=== PATIENT | male | born 1960 ===

== ENCOUNTER 2017-04-09 07:19 | Inpatient (IN) | payer OTHER ==
[2017-04-09 07:25] VITALS: BMI 28.3
--- NOTE | 2017-04-09 08:23 | C.PDOC ---
History Of Present Illness 57 y/o M c PMHx HTN, HLD, DM, arthritis p/w R gluteal swelling and pain x 1 week. Patient has had multiple boils on the buttocks that typically resolve with Augmentin and spontaneous drainage. Patient was started on Augmentin, but this particular induration has not improved so patient came to ED. Patient reports pain is worse than typical and area of induration is much larger than usual. Had fever for first 3 days, now gone. Denies vomiting, abdominal pain, dyspnea. Time Seen by Provider: 04/09/17 07:43 Chief Complaint (Nursing): Abnormal Skin Integrity Past Medical History Vital Signs: Last Vital Signs Temp 98 F 04/09/17 11:05 Pulse 58 L 04/09/17 11:05 Resp 16 04/09/17 11:05 BP 125/79 04/09/17 11:05 Pulse Ox 98 04/09/17 11:05 - Medical History PMH: Arthritis, HTN, Hypercholesterolemia Family History: States: No Known Family Hx - Social History Hx Alcohol Use: No Hx Substance Use: No - Immunization History Hx Tetanus Toxoid Vaccination: No Hx Influenza Vaccination: No Hx Pneumococcal Vaccination: No Review Of Systems Except As Marked, All Systems Reviewed And Found Negative. Constitutional: Negative for: Fever Respiratory: Negative for: Shortness of Breath Physical Exam - Physical Exam Additional Physical Exam Comments: Constitutional: No acute distress. Head: Normocephalic. Eyes: PERRL. ENT: Moist mucous membranes. Neck: Supple. Cardiovascular: Regular rate. Radial pulse 2+ bilaterally. Chest: No tenderness. Respiratory: Clear to auscultation bilaterally. GI: Soft. Nontender. Nondistended. Back: No CVA tenderness. Musculoskeletal: No tenderness or swelling of extremities. Skin: No rash. Right buttock with induration and tenderness. No superficially palpable fluctuant area, no obvious erythema. Neurologic: Alert, no focal deficit. ED Course And Treatment - Laboratory Results Result Diagrams: 04/09/17 08:45 04/09/17 08:45 O2 Sat by Pulse Oximetry: 97 (RA) Pulse Ox Interpretation: Normal Medical Decision Making Medical Decision Making: Will send for CT to evaluate for deep abscess vs cellulitis. Failed outpatient therapy, will start on IV antibiotics. FINDINGS: LOWER THORAX: U mild passive type atelectasis both posterior lung bases. No effusion or basilar pneumothorax. Heart size is within range of normal. No significant pericardial effusion. There is a small to medium size hiatal hernia with wall thickening of the distal esophagus that may in part be due to protrusion of gastric mucosa however esophagitis or other intrinsic/ invasive wall lesion (such as esophageal carcinoma) must be excluded. Followup upper endoscopy recommended if clinically indicated. LIVER: The liver exhibits normal size measuring approximately 13.1 cm in CC dimension. Mild fatty hepatic infiltration. No obvious hepatic collection or calcification identified. Portal and splenic are opacified. GALLBLADDER AND BILE DUCTS: The gallbladder is incompletely distended which may account for prominent gallbladder wall. No intraluminal gallbladder calculi or pericholecystic fluid collections. PANCREAS: There appears to be atrophic changes of the pancreatic tail region. Bulky appearance of the pancreatic head however no obvious discrete pancreatic masses are identified. SPLEEN: Spleen exhibits normal size and attenuation pattern without mass collection or calcification. ADRENALS: No adrenal lesions. KIDNEYS AND URETERS: Kidneys demonstrate relatively symmetric nephrograms. No evidence of nephrolithiasis or hydronephrosis. BLADDER: Urinary bladder is incompletely distended which in part accounts for thick- walled appearance. Muscular hypertrophy may contribute. Possibility of intrinsic/invasive wall lesion not excluded. Clinical correlation recommended. REPRODUCTIVE: Prostate gland is mildly enlarged measuring 5.5 cm in transverse dimension. Seminal vesicles appear grossly unremarkable. APPENDIX: .Normal-appearing appendix best seen on axial series 3 image number [id number]. No periappendiceal inflammatory changes. BOWEL: Evaluation of the bowel is limited due to by lack of oral contrast material. Stomach is incompletely distended which in part accounts for thick-walled appearance. . Possibility of a gastritis or other intrinsic/invasive wall lesion not excluded. Visualized loops of small bowel exhibit normal contour and caliber. No evidence of acute mechanical small bowel obstruction. Stool and air seen throughout the large bowel. There are few scattered colonic diverticula however no radiographic evidence of acute diverticulitis. PERITONEUM: Unremarkable. No fluid collection. No free air. LYMPH NODES: Unremarkable. No enlarged lymph nodes. VASCULATURE: Unremarkable. No aortic aneurysm. BONES: Mild multilevel degenerative spondylosis of the lower thoracic and lumbar spine. No acute compression fractures no retropulsed fragments. There appears to be a mild levoscoliosis centered in the lower lumbar region. Sclerotic foci seen scattered throughout the pelvis an right femoral neck probably represent small bone islands or osteomas. OTHER FINDINGS: There is at nonspecific vague infiltration changes seen in the right parasagittal buttock somewhat discrete curvilinear area of soft tissue density adjacent to the right posterolateral border of the anal verge region that measures approximately 2.17 x 1.2 cm. This could represent a inflammatory process and possible small phlegmon - possibly early abscess. In addition, there is some increased attenuation along the medial aspect of the right gluteus musculature as well compared to the left side which is fatty infiltrated. This too may represent a inflammatory - myositis process. In addition, there are mild infiltration changes within the subcutaneous fat of the right buttock as well. Clinical correlation recommended IMPRESSION: There is a small localized soft tissue density located in the right parasagittal posterior perianal region which may represent a small phlegmon and or early abscess. . There is also increased attenuation of the medial aspect of the gluteus musculature that may represent an inflammatory process/myositis as well. Additionally, mild infiltration changes in the subcutaneous fat right buttock compared the left. Clinical correlation recommended. Small hiatal hernia with wall thickening of distal esophagus likely in part due protrusion of gastric mucosa however esophagitis or other intrinsic/invasive wall lesion not excluded. The urinary bladder is also thickened in part due to incomplete distention and probable muscular hypertrophy though again cystitis or other intrinsic wall lesion not excluded. Enlarged prostate gland. Slightly atrophic appearing pancreatic distal body and tail with bulky appearance of the pancreatic head with no discrete pancreatic mass seen. Mild fatty hepatic infiltration. See above discussion for additional details and findings. These findings discussed with the Dr. Armando ramos at approximately 11:25 p.m. with written down and read back verification. Started on Vancomycin. Accepted to Dr. Ethan Johnson's service, informed of other CT findings requiring follow up. Disposition Discussed With : Garcia Johnson Doctor Will See Patient In The: Hospital - Disposition Disposition: HOSPITALIZED Disposition Time: 11:40 Condition: FAIR Forms: [facility] (Nauruan) - Clinical Impression Clinical Impression: Cellulitis, Failure of outpatient treatment - Scribe Statement The provider has reviewed the documentation as recorded by the Martaibolman Poole All medical record entries made by the Scribe were at my direction and personally dictated by me. I have reviewed the chart and agree that the record accurately reflects my personal performance of the history, physical exam, medical decision making, and the department course for this patient. I have also personally directed, reviewed, and agree with the discharge instructions and disposition.
[2017-04-09 08:55] LABS: BASO # 0.1 K/uL (0.0-0.2); EOS # 0.5 K/uL (0.0-0.7); EOS % 4.1 % (0.0-4.0); HEMATOCRIT 35.2 % (35.0-51.0); LYMPH # 2.6 K/uL (1.0-4.3); LYMPH % 22.1 % (20.0-40.0); MEAN CELL VOLUME 88.5 fL (80.0-94.0); MEAN CORPUSCULAR HEMOGLOBIN 30.7 pg (27.0-31.0); MEAN CORPUSCULAR HGB CONC 34.7 g/dL (33.0-37.0); MEAN PLATELET VOLUME 8.4 fL (7.2-11.7); MONO # 0.9 K/uL (0.0-0.8); MONO % 7.8 % (0.0-10.0); RED CELL DISTRIBUTION WIDTH 12.6 % (11.5-14.5); WHITE BLOOD COUNT 11.7 K/uL (4.8-10.8)
[2017-04-09 09:03] LABS: INR 1.1
[2017-04-09 09:14] LABS: ALB/GLOB RATIO 0.9 (1.0-2.1); ALKALINE PHOSPHATASE 73 U/L (38-126); ALT/SGPT 34 U/L (21-72); AST/SGOT 35 U/L (17-59); BILIRUBIN,TOTAL 0.5 mg/dL (0.2-1.3); BLOOD UREA NITROGEN 13 mg/dL (9-20); CALCIUM 9.2 mg/dl (8.6-10.4); CARBON DIOXIDE 31 mmol/L (22-30); CHLORIDE 97 mmol/L (98-107); GFR AFRICAN-AMERICAN > 60; GLUCOSE,RANDOM 155 mg/dL (75-110); POTASSIUM 4.2 mmol/L (3.6-5.2); SODIUM 134 mmol/L (132-148); TOTAL PROTEIN 7.9 g/dL (6.3-8.3)
[2017-04-09] MEDS ORDERED: Iodixanol 320 MG/ML 100 ML BOTTLE IV ONE (10:11)
--- NOTE | 2017-04-09 11:31 | CT ---
PROCEDURE: CT scan of the abdomen and pelvis dated 04/09/2017. HISTORY: Right-sided gluteal induration, assess cellulitis/abscess COMPARISON: None. TECHNIQUE: Contiguous helical/transaxial images of the abdomen and pelvis. Oral contrast was administered. No IV contrast given. Coronal and Sagittal reformats generated. Radiation dose: Total exam DLP = 1104.25 mGy-cm. This CT exam was performed using one or more of the following dose reduction techniques: Automated exposure control, adjustment of the mA and/or kV according to patient size, and/or use of iterative reconstruction technique. FINDINGS: LOWER THORAX: U mild passive type atelectasis both posterior lung bases. No effusion or basilar pneumothorax. Heart size is within range of normal. No significant pericardial effusion. There is a small to medium size hiatal hernia with wall thickening of the distal esophagus that may in part be due to protrusion of gastric mucosa however esophagitis or other intrinsic/ invasive wall lesion (such as esophageal carcinoma) must be excluded. Followup upper endoscopy recommended if clinically indicated. LIVER: The liver exhibits normal size measuring approximately 13.1 cm in CC dimension. Mild fatty hepatic infiltration. No obvious hepatic collection or calcification identified. Portal and splenic are opacified. GALLBLADDER AND BILE DUCTS: The gallbladder is incompletely distended which may account for prominent gallbladder wall. No intraluminal gallbladder calculi or pericholecystic fluid collections. PANCREAS: There appears to be atrophic changes of the pancreatic tail region. Bulky appearance of the pancreatic head however no obvious discrete pancreatic masses are identified. SPLEEN: Spleen exhibits normal size and attenuation pattern without mass collection or calcification. ADRENALS: No adrenal lesions. KIDNEYS AND URETERS: Kidneys demonstrate relatively symmetric nephrograms. No evidence of nephrolithiasis or hydronephrosis. BLADDER: Urinary bladder is incompletely distended which in part accounts for thick-walled appearance. Muscular hypertrophy may contribute. Possibility of intrinsic/invasive wall lesion not excluded. Clinical correlation recommended. REPRODUCTIVE: Prostate gland is mildly enlarged measuring 5.5 cm in transverse dimension. Seminal vesicles appear grossly unremarkable. APPENDIX: .Normal-appearing appendix best seen on axial series 3 image number [id number]. No periappendiceal inflammatory changes. BOWEL: Evaluation of the bowel is limited due to by lack of oral contrast material. Stomach is incompletely distended which in part accounts for thick-walled appearance. . Possibility of a gastritis or other intrinsic/invasive wall lesion not excluded. Visualized loops of small bowel exhibit normal contour and caliber. No evidence of acute mechanical small bowel obstruction. Stool and air seen throughout the large bowel. There are few scattered colonic diverticula however no radiographic evidence of acute diverticulitis. PERITONEUM: Unremarkable. No fluid collection. No free air. LYMPH NODES: Unremarkable. No enlarged lymph nodes. VASCULATURE: Unremarkable. No aortic aneurysm. BONES: Mild multilevel degenerative spondylosis of the lower thoracic and lumbar spine. No acute compression fractures no retropulsed fragments. There appears to be a mild levoscoliosis centered in the lower lumbar region. Sclerotic foci seen scattered throughout the pelvis an right femoral neck probably represent small bone islands or osteomas. OTHER FINDINGS: There is at nonspecific vague infiltration changes seen in the right parasagittal buttock somewhat discrete curvilinear area of soft tissue density adjacent to the right posterolateral border of the anal verge region that measures approximately 2.17 x 1.2 cm. This could represent a inflammatory process and possible small phlegmon - possibly early abscess. In addition, there is some increased attenuation along the medial aspect of the right gluteus musculature as well compared to the left side which is fatty infiltrated. This too may represent a inflammatory - myositis process. In addition, there are mild infiltration changes within the subcutaneous fat of the right buttock as well. Clinical correlation recommended IMPRESSION: There is a small localized soft tissue density located in the right parasagittal posterior perianal region which may represent a small phlegmon and or early abscess. . There is also increased attenuation of the medial aspect of the gluteus musculature that may represent an inflammatory process/myositis as well. Additionally, mild infiltration changes in the subcutaneous fat right buttock compared the left. Clinical correlation recommended. Small hiatal hernia with wall thickening of distal esophagus likely in part due protrusion of gastric mucosa however esophagitis or other intrinsic/invasive wall lesion not excluded. The urinary bladder is also thickened in part due to incomplete distention and probable muscular hypertrophy though again cystitis or other intrinsic wall lesion not excluded. Enlarged prostate gland. Slightly atrophic appearing pancreatic distal body and tail with bulky appearance of the pancreatic head with no discrete pancreatic mass seen. Mild fatty hepatic infiltration. See above discussion for additional details and findings. These findings discussed with the Dr. Armando ramos at approximately 11:25 p.m. with written down and read back verification.
[2017-04-09] MEDS ORDERED: Vancomycin 1 gm/NS 200 ml 1 GM/200 ML BAG IVPB ONE (12:15)
[2017-04-09] MEDS ORDERED: Pneumococcal 23-Valent Vaccine IM ONE (16:58)
[2017-04-09] MEDS ORDERED: Influenza Vaccine 60 mcg/0.5 mL SYR (4YR UP) IM ONE (16:59)
[2017-04-09] MEDS ORDERED: Piperacillin/Tazobact 3.375 GM in Sodium Chloride 100 ML IVPB SCH (17:45)
[2017-04-09] MEDS: Piperacill/Tazo 3.375gm in Dex 3.375 GM/50 ML BAG IVPB SCH ×2 (18:37→23:55)
--- NOTE | 2017-04-09 18:41 | CP.PCM.CON ---
History of Present Illness - History of Present Illness History of Present Illness: General Surgery Dr. Hernandez (covering Dr. Almeida) 57 y/o M w/ PMHx of HTN and DM2 presents to the ED at the instruction of his PMD , Dr. Ese Johnson, c/o (R) buttock pain. Pt has a Hx of boils for which he is normally treated w/ PO Augmentin as outpatient. However, this episode has not improved despite PO Abx. Pt states pain began last Wednesday (04/02/17) and pt started PO Abx on Wednesday (04/03/17). Pain described as non-radiating and constant. Pt denies rectal pain or pain w/ BM. Pt also reports subjective fevers and chills from Wednesday to Wednesday. Pt reports last boil was 6-7 weeks ago on the (L) buttock. Pt denies F/C, D/C. Pt reports improvement in pain, swelling, and induration since arriving in ED this morning. PMHx: HTN, DM2, HLD, arthritis Meds: reviewed in chart NKDA PSHx: denies SHx: denies tobacco, EtOH, drug use FHx: non-contributory Review of Systems - Review of Systems All systems: reviewed and no additional remarkable complaints except (see HPI) Past Patient History - Past Medical History & Family History Past Medical History?: Yes - Past Social History Smoking Status: Never Smoked - CARDIAC Hx Hypercholesterolemia: Yes Hx Hypertension: Yes - ENDOCRINE/METABOLIC Hx Endocrine Disorders: Yes Hx Diabetes Mellitus Type 2: Yes - MUSCULOSKELETAL/RHEUMATOLOGICAL Hx Arthritis: Yes Hx Falls: No - PSYCHIATRIC Hx Substance Use: No - SURGICAL HISTORY Hx Surgeries: No - ANESTHESIA Hx Anesthesia: No Meds Allergies/Adverse Reactions: Allergies Allergy/AdvReac Type Severity Reaction Status Date / Time No Known Allergies Allergy Verified 04/09/17 07:25 - Medications Medications: Current Medications Aspirin (Ecotrin) 81 mg PO DAILY EUNICE Atenolol (Tenormin) 50 mg PO DAILY EUNICE Glipizide (Glucotrol Xl) 2.5 mg PO DAILY EUNICE Home Med (Glucosamine Sulfate Dipot Chlr [Glucosamine]) 1,000 mg PO DAILY EUNICE Vancomycin HCl 1 gm/ Sodium (Chloride) 250 mls @ 166.7 mls/hr IVPB Q24H EUNICE Piperacillin Sod/Tazobactam Sod (Zosyn 3.375 Gm Iv Premix) 3.375 gm in 50 mls @ 100 mls/hr IVPB Q6H EUNICE Multivitamins (Hexavitamin) 1 tab PO DAILY EUNICE Rosuvastatin Calcium (Crestor) 5 mg PO HS EUNICE Physical Exam - Constitutional Appears: Non-toxic, No Acute Distress - Head Exam Head Exam: NORMAL INSPECTION - Eye Exam Eye Exam: Normal appearance - ENT Exam ENT Exam: Mucous Membranes Moist - Respiratory Exam Respiratory Exam: NORMAL BREATHING PATTERN. absent: Accessory Muscle Use, Respiratory Distress - Cardiovascular Exam Cardiovascular Exam: absent: Bradycardia, Tachycardia - GI/Abdominal Exam GI & Abdominal Exam: Soft. absent: Distended, Tenderness - Rectal Exam Additional comments: R buttock induration no fluctuance, drainage, warmth palpable no erythema appreciable - Extremities Exam Extremities exam: Positive for: normal inspection - Neurological Exam Neurological exam: Alert, Oriented x3 - Psychiatric Exam Psychiatric exam: Normal Affect, Normal Mood - Skin Skin Exam: Dry, Intact, Warm Results - Vital Signs Recent Vital Signs: Last Vital Signs Temp 98.4 F 04/09/17 16:30 Pulse 62 04/09/17 16:30 Resp 20 04/09/17 16:30 BP 111/72 04/09/17 16:30 Pulse Ox 97 04/09/17 16:30 - Labs Result Diagrams: 04/09/17 08:45 04/09/17 08:45 Labs: Laboratory Results - last 24 hr 04/09/17 04/09/17 04/09/17 08:45 08:45 08:45 WBC 11.7 H RBC 3.97 L Hgb 12.2 Hct 35.2 MCV 88.5 MCH 30.7 MCHC 34.7 RDW 12.6 Plt Count 385 MPV 8.4 Neut % (Auto) 65.0 Lymph % (Auto) 22.1 [place] % (Auto) 7.8 Eos % (Auto) 4.1 H Baso % (Auto) 1.0 Neut # 7.6 H Lymph # 2.6 [place] # 0.9 H Eos # 0.5 Baso # 0.1 PT 12.9 H INR 1.1 APTT 35 H Sodium 134 Potassium 4.2 Chloride 97 L Carbon Dioxide 31 H Anion Gap 10 BUN 13 Creatinine 0.7 L Est GFR ( Amer) > 60 Est GFR (Non-Af Amer) > 60 Random Glucose 155 H Calcium 9.2 Total Bilirubin 0.5 AST 35 ALT 34 Alkaline Phosphatase 73 Total Protein 7.9 Albumin 3.7 Globulin 4.2 H Albumin/Globulin Ratio 0.9 L Blood Type Antibody Screen 04/09/17 08:45 WBC RBC Hgb Hct MCV MCH MCHC RDW Plt Count MPV Neut % (Auto) Lymph % (Auto) [place] % (Auto) Eos % (Auto) Baso % (Auto) Neut # Lymph # [place] # Eos # Baso # PT INR APTT Sodium Potassium Chloride Carbon Dioxide Anion Gap BUN Creatinine Est GFR ( Amer) Est GFR (Non-Af Amer) Random Glucose Calcium Total Bilirubin AST ALT Alkaline Phosphatase Total Protein Albumin Globulin Albumin/Globulin Ratio Blood Type O POSITIVE Antibody Screen Negative - Imaging and Cardiology CT scan - abdomen Status: Image reviewed by me, Report reviewed by me Assessment & Plan - Assessment and Plan (Free Text) Assessment: 57 y/o M w/ (R) buttock cellulitis - apply warm compressed Q1 to affected area - cont IV Abx per ID - pain management - monitor bowel fxn - no drainable abscess at this time. - will continue to follow Pt discussed w/ Dr. Hernandez (covering Dr. Almeida) Yamila Martinez DO PGY2
--- NOTE | 2017-04-09 18:45 | CP.PCM.CON ---
History of Present Illness - History of Present Illness History of Present Illness: 57 y/o M presents to the ED c/o (R) buttock pain. Pt has a Hx of boils for which he is normally treated w/ PO Augmentin as outpatient. However, this episode has not improved despite PO Abx x several days has a large firm mass under right gluteus area which is tender warm but not fluctuant PMHx: HTN, DM2, HLD, arthritis Meds: reviewed in chart NKDA PSHx: denies SHx: denies tobacco, EtOH, drug use FHx: non-contributory Review of Systems - Constitutional Constitutional: Anorexia - EENT Eyes: As Per HPI Ears: absent: As Per HPI, Decreased Hearing, Ear Discharge, Ear Pain, Tinnitus, Abnormal Hearing, Disequilibrium, Dizziness, Other Nose/Mouth/Throat: absent: As Per HPI, Epistaxis, Nasal Congestion, Nasal Discharge, Nasal Obstruction, Nasal Trauma, Nose Pain, Post Nasal Drip, Sinus Pain, Sinus Pressure, Bleeding Gums, Change in Voice, Dental Pain, Dry Mouth, Dysphagia, Halitosis, Hoarsness, Lip Swelling, Mouth Lesions, Mouth Pain, Odynophagia, Sore Throat, Throat Swelling, Tongue Swelling, Facial Pain, Neck Pain, Neck Mass, Other - Cardiovascular Cardiovascular: absent: As Per HPI, Acrocyanosis, Chest Pain, Chest Pain at Rest , Chest Pain with Activity, Claudication, Diaphoresis, Dyspnea, Dyspnea on Exertion, Edema, Irregular Heart Rhythm, Pain Radiating to Arm/Neck/Jaw, Leg Edema, Leg Ulcers, Lightheadedness, Orthopnea, Palpitations, Paroxysmal Nocturnal Dyspnea, Pedal Edema, Radiating Pain, Rapid Heart Rate, Slow Heart Rate, Syncope, Other - Respiratory Respiratory: absent: As Per HPI, Cough, Dyspnea, Hemoptysis, Dyspnea on Exertion , Wheezing, Snoring, Stridor, Pain on Inspiration, Chest Congestion, Excessive Mucous Production, Change in Mucous Color, Pain with Coughing, Other - Gastrointestinal Gastrointestinal: absent: As Per HPI, Abdominal Pain, Belching, Bloating, Change in Bowel Habits, Change in Stool Character, Coffee Ground Emesis, Constipation, Cramping, Diarrhea, Dyspepsia, Dysphagia, Early Satiety, Excessive Flatus, Fecal Incontinence, Heartburn, Hematemesis, Hematochezia, Loose Stools, Melena, Nausea, Odynophagia, Temesmus, Vomiting, Other - Genitourinary Genitourinary: absent: As Per HPI, Change in Urinary Stream, Difficulty Urinating, Dysuria, Flank Pain, Hematuria, Pyuria, Nocturia, Urinary Incontinence, Urinary Frequency, Urinary Hesitance, Urinary Urgency, Voiding Freq/Small Amts, Freq UTI, Hx Renal/Bladder Calculi, Hx /Renal Surgery, Bladder Distension, Other - Musculoskeletal Musculoskeletal: As Per HPI - Integumentary Integumentary: As Per HPI, Skin Pain, Wounds - Neurological Neurological: absent: As Per HPI, Abnormal Gait, Abnormal Hearing, Abnormal Movements, Abnormal Speech, Behavioral Changes, Burning Sensations, Confusion, Convulsions, Disequilibrium, Dizziness, Numbness, Focal Weakness, Frequent Falls , Headaches, Lack of Coordination, Loss of Vision, Memory Loss, Paresthesias, Radicular Pain, Restless Legs, Sensory Deficit, Syncope, Tingling, Tremor, Vertigo, Weakness, Other Visual Disturbances, Other - Psychiatric Psychiatric: absent: As Per HPI, Abnormal Sleep Pattern, Anhedonia, Anxiety, Auditory Hallucinations, Behavioral Changes, Change in Appetite, Change in Libido, Confusion, Depression, Difficulty Concentrating, Hallucinations, Homicidal Ideation, Hopelessness, Irritability, Memory Loss, Mood Swings, Panic Attacks, Paranoia, Suicidal Ideation, Visual Hallucinations, Tactile Hallucinations, Other - Endocrine Endocrine: absent: As Per HPI, Change in Body Appearance, Change in Libido, Cold Intolorance, Deepening of Voice, Excessive Sweating, Fatigue, Flushing, Heat Intolorance, Increase in Ring/Shoe/Hat Size, Palpitations, Polydipsia, Polyphagia, Polyuria, Other - Hematologic/Lymphatic Hematologic: absent: As Per HPI, Easy Bleeding, Easy Bruising, Lymphadenopathy, Other Past Patient History - Past Medical History & Family History Past Medical History?: Yes - Past Social History Smoking Status: Never Smoked - CARDIAC Hx Hypercholesterolemia: Yes Hx Hypertension: Yes - ENDOCRINE/METABOLIC Hx Endocrine Disorders: Yes Hx Diabetes Mellitus Type 2: Yes - MUSCULOSKELETAL/RHEUMATOLOGICAL Hx Arthritis: Yes Hx Falls: No - PSYCHIATRIC Hx Substance Use: No - SURGICAL HISTORY Hx Surgeries: No - ANESTHESIA Hx Anesthesia: No Meds Allergies/Adverse Reactions: Allergies Allergy/AdvReac Type Severity Reaction Status Date / Time No Known Allergies Allergy Verified 04/09/17 07:25 - Medications Medications: Current Medications Aspirin (Ecotrin) [address] [facility] Atenolol (Tenormin) [address] [facility] Glipizide (Glucotrol Xl) 2.[address] [facility] Home Med (Glucosamine Sulfate Dipot Chlr [Glucosamine]) 1,[address] [facility] Vancomycin HCl 1 gm/ Sodium (Chloride) 250 mls @ 166.7 mls/hr IVPB Q24H [facility] Piperacillin Sod/Tazobactam Sod (Zosyn 3.375 Gm Iv Premix) 3.375 gm in 50 mls @ 100 mls/hr IVPB Q6H [facility] Last Admin: 04/09/17 18:37 Dose: 100 mls/hr Multivitamins (Hexavitamin) [address] [facility] Rosuvastatin Calcium (Crestor) [address] [facility] Physical Exam - Constitutional Appears: Non-toxic, Chronically Ill - Head Exam Head Exam: NORMOCEPHALIC - Eye Exam Eye Exam: PERRL. absent: Scleral icterus - ENT Exam ENT Exam: Mucous Membranes Dry, Normal External Ear Exam - Neck Exam Neck exam: Negative for: Lymphadenopathy - Respiratory Exam Respiratory Exam: Decreased Breath Sounds - Cardiovascular Exam Cardiovascular Exam: REGULAR RHYTHM - GI/Abdominal Exam GI & Abdominal Exam: Diminished Bowel Sounds, Soft. absent: Tenderness - Rectal Exam Rectal Exam: Deferred - Exam Exam: NORMAL INSPECTION - Extremities Exam Extremities exam: Negative for: pedal edema - Back Exam Back exam: absent: CVA tenderness (L), CVA tenderness (R) - Neurological Exam Neurological exam: Alert, CN II-XII Intact, Oriented x3, Reflexes Normal - Psychiatric Exam Psychiatric exam: Depressed - Skin Skin Exam: Dry Additional comments: warm tender indurated mass right gluteus inner half Results - Vital Signs Recent Vital Signs: Last Vital Signs Temp 98.4 F 04/09/17 16:30 Pulse 62 04/09/17 16:30 Resp 20 04/09/17 16:30 BP 111/72 04/09/17 16:30 Pulse Ox 97 04/09/17 16:30 - Labs Result Diagrams: 04/09/17 08:45 04/09/17 08:45 Labs: Laboratory Results - last 24 hr 04/09/17 04/09/17 04/09/17 08:45 08:45 08:45 WBC 11.7 H RBC 3.97 L Hgb 12.2 Hct 35.2 MCV 88.5 MCH 30.7 MCHC 34.7 RDW 12.6 Plt Count 385 MPV 8.4 Neut % (Auto) 65.0 Lymph % (Auto) 22.1 [place] % (Auto) 7.8 Eos % (Auto) 4.1 H Baso % (Auto) 1.0 Neut # 7.6 H Lymph # 2.6 Heard # 0.9 H Eos # 0.5 Baso # 0.1 PT 12.9 H INR 1.1 APTT 35 H Sodium 134 Potassium 4.2 Chloride 97 L Carbon Dioxide 31 H Anion Gap 10 BUN 13 Creatinine 0.7 L Est GFR ( Amer) > 60 Est GFR (Non-Af Amer) > 60 Random Glucose 155 H Calcium 9.2 Total Bilirubin 0.5 AST 35 ALT 34 Alkaline Phosphatase 73 Total Protein 7.9 Albumin 3.7 Globulin 4.2 H Albumin/Globulin Ratio 0.9 L Blood Type Antibody Screen 04/09/17 08:45 WBC RBC Hgb Hct MCV MCH MCHC RDW Plt Count MPV Neut % (Auto) Lymph % (Auto) [place] % (Auto) Eos % (Auto) Baso % (Auto) Neut # Lymph # [place] # Eos # Baso # PT INR APTT Sodium Potassium Chloride Carbon Dioxide Anion Gap BUN Creatinine Est GFR ( Amer) Est GFR (Non-Af Amer) Random Glucose Calcium Total Bilirubin AST ALT Alkaline Phosphatase Total Protein Albumin Globulin Albumin/Globulin Ratio Blood Type O POSITIVE Antibody Screen Negative Assessment & Plan - Assessment and Plan (Free Text) Plan: mass in right gluteus- not fluctuant r/o infection surgery on board cont warm compresses and antibiotics may need i and d
--- NOTE | 2017-04-09 21:25 | CP.PCM.HP ---
Past Patient History - Past Medical History & Family History Past Medical History?: Yes - Past Social History Smoking Status: Never Smoked - CARDIAC Hx Hypercholesterolemia: Yes Hx Hypertension: Yes - ENDOCRINE/METABOLIC Hx Endocrine Disorders: Yes Hx Diabetes Mellitus Type 2: Yes - MUSCULOSKELETAL/RHEUMATOLOGICAL Hx Arthritis: Yes Hx Falls: No - PSYCHIATRIC Hx Substance Use: No - SURGICAL HISTORY Hx Surgeries: No - ANESTHESIA Hx Anesthesia: No Meds Allergies/Adverse Reactions: Allergies Allergy/AdvReac Type Severity Reaction Status Date / Time No Known Allergies Allergy Verified 04/09/17 07:25 Physical Exam - Constitutional Appears: Well - Head Exam Head Exam: ATRAUMATIC, NORMAL INSPECTION, NORMOCEPHALIC - Eye Exam Eye Exam: EOMI, Normal appearance, PERRL Pupil Exam: NORMAL ACCOMODATION, PERRL - ENT Exam ENT Exam: Mucous Membranes Moist, Normal Exam - Neck Exam Neck exam: Positive for: Normal Inspection - Respiratory Exam Respiratory Exam: Decreased Breath Sounds - Cardiovascular Exam Cardiovascular Exam: REGULAR RHYTHM, +S1, +S2 - GI/Abdominal Exam GI & Abdominal Exam: Diminished Bowel Sounds, Soft - Rectal Exam Rectal Exam: Deferred Results - Vital Signs Recent Vital Signs: Last Vital Signs Temp 98.4 F 04/09/17 16:30 Pulse 62 04/09/17 16:30 Resp 20 04/09/17 16:30 BP 111/72 04/09/17 16:30 Pulse Ox 97 04/09/17 16:30 - Labs Result Diagrams: 04/09/17 08:45 04/09/17 08:45 Labs: Laboratory Results - last 24 hr 04/09/17 04/09/17 04/09/17 08:45 08:45 08:45 WBC 11.7 H RBC 3.97 L Hgb 12.2 Hct 35.2 MCV 88.5 MCH 30.7 MCHC 34.7 RDW 12.6 Plt Count 385 MPV 8.4 Neut % (Auto) 65.0 Lymph % (Auto) 22.1 [place] % (Auto) 7.8 Eos % (Auto) 4.1 H Baso % (Auto) 1.0 Neut # 7.6 H Lymph # 2.6 [place] # 0.9 H Eos # 0.5 Baso # 0.1 PT 12.9 H INR 1.1 APTT 35 H Sodium 134 Potassium 4.2 Chloride 97 L Carbon Dioxide 31 H Anion Gap 10 BUN 13 Creatinine 0.7 L Est GFR ( Amer) > 60 Est GFR (Non-Af Amer) > 60 Random Glucose 155 H Calcium 9.2 Total Bilirubin 0.5 AST 35 ALT 34 Alkaline Phosphatase 73 Total Protein 7.9 Albumin 3.7 Globulin 4.2 H Albumin/Globulin Ratio 0.9 L Blood Type Antibody Screen 04/09/17 08:45 WBC RBC Hgb Hct MCV MCH MCHC RDW Plt Count MPV Neut % (Auto) Lymph % (Auto) [place] % (Auto) Eos % (Auto) Baso % (Auto) Neut # Lymph # [place] # Eos # Baso # PT INR APTT Sodium Potassium Chloride Carbon Dioxide Anion Gap BUN Creatinine Est GFR ( Amer) Est GFR (Non-Af Amer) Random Glucose Calcium Total Bilirubin AST ALT Alkaline Phosphatase Total Protein Albumin Globulin Albumin/Globulin Ratio Blood Type O POSITIVE Antibody Screen Negative
[2017-04-10] MEDS: Piperacill/Tazo 3.375gm in Dex 3.375 GM/50 ML BAG IVPB SCH ×4 (05:34→23:50)
--- NOTE | 2017-04-10 06:27 | CP.PCM.PN ---
Subjective - Date & Time of Evaluation Date of Evaluation: 04/10/17 Time of Evaluation: 06:26 - Subjective Subjective: General Surgery Dr. Hernandez (covering Dr. Almeida) Pt OOB in bathroom on rounds. NAEO. Afebrile overnight. tolerating diet. Objective - Vital Signs/Intake and Output Vital Signs (last 24 hours): Temp Pulse Resp BP Pulse Ox 98.9 F 67 16 104/55 L 100 04/10/17 00:00 04/10/17 00:00 04/10/17 00:00 04/10/17 00:00 04/10/17 00:00 Intake and Output: 04/09/17 04/10/17 18:59 06:59 Intake Total 250 Balance 250 - Medications Medications: Current Medications Aspirin (Ecotrin) 81 mg PO DAILY [facility] Atenolol (Tenormin) 50 mg PO DAILY [facility] Glipizide (Glucotrol Xl) 2.5 mg PO DAILY [facility] Home Med (Glucosamine Sulfate Dipot Chlr [Glucosamine]) 1,000 mg PO DAILY [facility] Piperacillin Sod/Tazobactam Sod (Zosyn 3.375 Gm Iv Premix) 3.375 gm in 50 mls @ 100 mls/hr IVPB Q6H [facility] Last Admin: 04/10/17 05:34 Dose: 100 mls/hr Vancomycin HCl 1,000 mg/ (Sodium Chloride) 250 mls @ 166.6 mls/hr IVPB Q12H [facility] Last Admin: 04/10/17 00:28 Dose: 166.6 mls/hr Multivitamins (Hexavitamin) 1 tab PO DAILY [facility] Rosuvastatin Calcium (Crestor) 5 mg PO HS [facility] Last Admin: 04/09/17 21:36 Dose: 5 mg - Labs Labs: 04/09/17 08:45 04/09/17 08:45 PT 12.9 SECONDS (9.7-12.2) H 04/09/17 08:45 INR 1.1 04/09/17 08:45 APTT 35 SECONDS (21-34) H 04/09/17 08:45 - Constitutional Appears: Non-toxic, No Acute Distress - Head Exam Head Exam: NORMAL INSPECTION - Eye Exam Eye Exam: Normal appearance - ENT Exam ENT Exam: Mucous Membranes Moist - Respiratory Exam Respiratory Exam: NORMAL BREATHING PATTERN. absent: Accessory Muscle Use, Respiratory Distress - Neurological Exam Neurological Exam: Alert, Awake, Oriented x3 - Psychiatric Exam Psychiatric exam: Normal Affect, Normal Mood - Skin Skin Exam: Dry, Warm Assessment and Plan - Assessment and Plan (Free Text) Assessment: 57 y/o M w/ R gluteal cellulitis - cont warm compresses - cont IV Abx per ID - cont pain management - monitor bowel function - monitor vitals - I&D if fluid collection forms; however no surgical intervention at this time Pt discussed w/ Dr. David Martinez DO PGY2
[2017-04-10 07:33] LABS: BASO # 0.1 K/uL (0.0-0.2); BASO % 0.7 % (0.0-2.0); EOS # 0.5 K/uL (0.0-0.7); EOS % 4.5 % (0.0-4.0); HEMATOCRIT 34.1 % (35.0-51.0); LYMPH # 3.3 K/uL (1.0-4.3); LYMPH % 27.4 % (20.0-40.0); MEAN CELL VOLUME 88.4 fL (80.0-94.0); MEAN CORPUSCULAR HEMOGLOBIN 31.5 pg (27.0-31.0); MEAN CORPUSCULAR HGB CONC 35.7 g/dL (33.0-37.0); MEAN PLATELET VOLUME 8.4 fL (7.2-11.7); MONO # 0.9 K/uL (0.0-0.8); MONO % 7.6 % (0.0-10.0); RED CELL DISTRIBUTION WIDTH 12.6 % (11.5-14.5); WHITE BLOOD COUNT 12.2 K/uL (4.8-10.8)
[2017-04-10 07:52] VITALS: RESP 20
[2017-04-10 08:15] LABS: ALB/GLOB RATIO 1.2 (1.0-2.1); ALKALINE PHOSPHATASE 70 U/L (38-126); ALT/SGPT 28 U/L (21-72); AST/SGOT 27 U/L (17-59); BILIRUBIN,TOTAL 0.3 mg/dL (0.2-1.3); BLOOD UREA NITROGEN 12 mg/dL (9-20); CALCIUM 8.6 mg/dl (8.6-10.4); CARBON DIOXIDE 26 mmol/L (22-30); CHLORIDE 102 mmol/L (98-107); GFR AFRICAN-AMERICAN > 60; GLUCOSE,RANDOM 121 mg/dL (75-110); SODIUM 135 mmol/L (132-148)
[2017-04-10] MEDS ORDERED: FOLIC PO SCH (10:00)
[2017-04-10] MEDS ORDERED: IRON PO SCH (10:00)
[2017-04-10] MEDS ORDERED: GLUCOSAMINE SULFATE DIPOT CHLR 1000 MG PO SCH (10:00)
[2017-04-10] MEDS ORDERED: MULTIVIT CALC MINS PO SCH (10:00)
[2017-04-10] MEDS: Multiple Vitamins Tab PO SCH (10:50)
[2017-04-10] MEDS: GlipiZIDE 2.5 mg SR Tab PO SCH (10:51)
--- NOTE | 2017-04-10 15:20 | CP.PCM.PN ---
Subjective - Date & Time of Evaluation Date of Evaluation: 04/10/17 Time of Evaluation: 08:20 - Subjective Subjective: clinically same Objective - Vital Signs/Intake and Output Vital Signs (last 24 hours): Temp Pulse Resp BP Pulse Ox 98 F 61 20 123/81 96 04/10/17 07:51 04/10/17 07:51 04/10/17 07:51 04/10/17 07:51 04/10/17 07:51 Intake and Output: 04/10/17 04/10/17 06:59 18:59 Intake Total 550 700 Balance 550 700 - Medications Medications: Current Medications Aspirin (Ecotrin) 81 mg PO DAILY [facility] Last Admin: 04/10/17 10:50 Dose: 81 mg Atenolol (Tenormin) 50 mg PO DAILY [facility] Last Admin: 04/10/17 10:51 Dose: 50 mg Glipizide (Glucotrol Xl) 2.5 mg PO DAILY [facility] Last Admin: 04/10/17 10:51 Dose: 2.5 mg Piperacillin Sod/Tazobactam Sod (Zosyn 3.375 Gm Iv Premix) 3.375 gm in 50 mls @ 100 mls/hr IVPB Q6H [facility] Last Admin: 04/10/17 11:59 Dose: 100 mls/hr Vancomycin HCl 1,000 mg/ (Sodium Chloride) 250 mls @ 166.6 mls/hr IVPB Q12H [facility] Last Admin: 04/10/17 12:32 Dose: 166.6 mls/hr Multivitamins (Hexavitamin) 1 tab PO DAILY [facility] Last Admin: 04/10/17 10:50 Dose: 1 tab Rosuvastatin Calcium (Crestor) 5 mg PO HS [facility] Last Admin: 04/09/17 21:36 Dose: 5 mg - Labs Labs: 04/10/17 07:15 04/10/17 07:15 PT 12.9 SECONDS (9.7-12.2) H 04/09/17 08:45 INR 1.1 04/09/17 08:45 APTT 35 SECONDS (21-34) H 04/09/17 08:45 - Constitutional Appears: Well - Head Exam Head Exam: ATRAUMATIC, NORMAL INSPECTION, NORMOCEPHALIC - Eye Exam Eye Exam: EOMI, Normal appearance, PERRL Pupil Exam: NORMAL ACCOMODATION, PERRL - ENT Exam ENT Exam: Mucous Membranes Moist, Normal Exam - Neck Exam Neck Exam: Full ROM, Normal Inspection. absent: Lymphadenopathy - Respiratory Exam Respiratory Exam: Decreased Breath Sounds - Cardiovascular Exam Cardiovascular Exam: REGULAR RHYTHM, +S1, +S2 - GI/Abdominal Exam GI & Abdominal Exam: Soft, Diminished Bowel Sounds - Rectal Exam Rectal Exam: Deferred
[2017-04-10 16:25] VITALS: O2SAT 97
[2017-04-11] MEDS: Piperacill/Tazo 3.375gm in Dex 3.375 GM/50 ML BAG IVPB SCH ×3 (05:29→17:14)
--- NOTE | 2017-04-11 07:17 | CP.PCM.PN ---
Subjective - Date & Time of Evaluation Date of Evaluation: 04/11/17 Time of Evaluation: 07:16 - Subjective Subjective: Gen Surgery: Dr Almeida (Dr Hernandez covering) Pt S&E. ONELIA. VSS, remains afebrile. Pt reports he is feeling much better after IV abx. He is unable to even locate the area of his cellulitis because it is no longer tender. Denies fevers, chills, N/V. Pt reports he has been getting warm compresses. States he was told he can go home after 7PM today?? Objective - Vital Signs/Intake and Output Vital Signs (last 24 hours): Temp Pulse Resp BP Pulse Ox 97.4 F L 62 20 116/76 97 04/11/17 00:00 04/11/17 00:00 04/11/17 00:00 04/11/17 00:00 04/11/17 00:00 Intake and Output: 04/11/17 04/11/17 06:59 18:59 Intake Total 250 Output Total 600 Balance -350 - Medications Medications: Current Medications Aspirin (Ecotrin) 81 mg PO DAILY [facility] Last Admin: 04/10/17 10:50 Dose: 81 mg Atenolol (Tenormin) 50 mg PO DAILY [facility] Last Admin: 04/10/17 10:51 Dose: 50 mg Glipizide (Glucotrol Xl) 2.5 mg PO DAILY [facility] Last Admin: 04/10/17 10:51 Dose: 2.5 mg Piperacillin Sod/Tazobactam Sod (Zosyn 3.375 Gm Iv Premix) 3.375 gm in 50 mls @ 100 mls/hr IVPB Q6H [facility] Last Admin: 04/11/17 05:29 Dose: 100 mls/hr Vancomycin HCl 1,000 mg/ (Sodium Chloride) 250 mls @ 166.6 mls/hr IVPB Q12H [facility] Last Admin: 04/10/17 23:54 Dose: 166.6 mls/hr Multivitamins (Hexavitamin) 1 tab PO DAILY [facility] Last Admin: 04/10/17 10:50 Dose: 1 tab Rosuvastatin Calcium (Crestor) 5 mg PO HS [facility] Last Admin: 04/10/17 21:36 Dose: 5 mg - Labs Labs: 04/10/17 07:15 04/10/17 07:15 PT 12.9 SECONDS (9.7-12.2) H 04/09/17 08:45 INR 1.1 04/09/17 08:45 APTT 35 SECONDS (21-34) H 04/09/17 08:45 - Constitutional Appears: Non-toxic, No Acute Distress - ENT Exam ENT Exam: Mucous Membranes Moist - Respiratory Exam Respiratory Exam: absent: Accessory Muscle Use, Respiratory Distress - Cardiovascular Exam Cardiovascular Exam: REGULAR RHYTHM. absent: Tachycardia - GI/Abdominal Exam GI & Abdominal Exam: Soft. absent: Distended, Firm, Tenderness - Rectal Exam Additional comments: no erythema, no induration, no drainable fluid collection, no tenderness Assessment and Plan - Assessment and Plan (Free Text) Assessment: 57M with right gluteal cellulitis Plan: cont IV abx no surgical intervention planned can continue warm compresses at home d/c pending primary evaluation and need for intermediate project manager abx d/w Dr David Miner, PGY3
[2017-04-11] MEDS: Multiple Vitamins Tab PO SCH (10:10)
[2017-04-11] MEDS: GlipiZIDE 2.5 mg SR Tab PO SCH (10:10)
--- NOTE | 2017-04-11 13:50 | CP.PCM.PN ---
Subjective - Date & Time of Evaluation Date of Evaluation: 04/11/17 Time of Evaluation: 07:00 - Subjective Subjective: still has area of induration in medial gluteal region no pus and cellulitis less improving on IV antibiotics Objective - Vital Signs/Intake and Output Vital Signs (last 24 hours): Temp Pulse Resp BP Pulse Ox 97.6 F 60 20 109/70 97 04/11/17 07:36 04/11/17 07:36 04/11/17 07:36 04/11/17 07:36 04/11/17 07:36 Intake and Output: 04/11/17 04/11/17 06:59 18:59 Intake Total 250 Output Total 600 Balance -350 - Medications Medications: Current Medications Aspirin (Ecotrin) 81 mg PO DAILY [facility] Last Admin: 04/11/17 10:10 Dose: 81 mg Atenolol (Tenormin) 50 mg PO DAILY [facility] Last Admin: 04/11/17 10:10 Dose: 50 mg Glipizide (Glucotrol Xl) 2.5 mg PO DAILY [facility] Last Admin: 04/11/17 10:10 Dose: 2.5 mg Piperacillin Sod/Tazobactam Sod (Zosyn 3.375 Gm Iv Premix) 3.375 gm in 50 mls @ 100 mls/hr IVPB Q6H [facility] Last Admin: 04/11/17 12:33 Dose: 100 mls/hr Vancomycin HCl 1,000 mg/ (Sodium Chloride) 200 mls @ 133.333 mls/hr IVPB ONCE ONE Stop: 04/11/17 19:29 Multivitamins (Hexavitamin) 1 tab PO DAILY [facility] Last Admin: 04/11/17 10:10 Dose: 1 tab Rosuvastatin Calcium (Crestor) 5 mg PO HS [facility] Last Admin: 04/10/17 21:36 Dose: 5 mg - Labs Labs: 04/10/17 07:15 04/10/17 07:15 PT 12.9 SECONDS (9.7-12.2) H 04/09/17 08:45 INR 1.1 04/09/17 08:45 APTT 35 SECONDS (21-34) H 04/09/17 08:45 - Constitutional Appears: Non-toxic, Chronically Ill - Head Exam Head Exam: NORMOCEPHALIC - Eye Exam Eye Exam: PERRL. absent: Scleral icterus - ENT Exam ENT Exam: Mucous Membranes Dry - Neck Exam Neck Exam: absent: Lymphadenopathy - Respiratory Exam Respiratory Exam: Decreased Breath Sounds - Cardiovascular Exam Cardiovascular Exam: REGULAR RHYTHM, +S1, +S2 - GI/Abdominal Exam GI & Abdominal Exam: Distended, Soft. absent: Tenderness - Rectal Exam Rectal Exam: Deferred - Exam Exam: NORMAL INSPECTION - Back Exam Back Exam: absent: CVA tenderness (L), CVA tenderness (R) - Neurological Exam Neurological Exam: Alert, Awake, Oriented x3 Assessment and Plan (1) Cellulitis Status: Acute (2) Failure of outpatient treatment Status: Acute
[2017-04-11 15:59] VITALS: BP 103/66; PULSE 62; TEMP 97.8
--- NOTE | 2017-04-11 17:36 | CP.PCM.PN ---
Subjective - Date & Time of Evaluation Date of Evaluation: 04/11/17 Time of Evaluation: 07:40 - Subjective Subjective: clinically same Objective - Vital Signs/Intake and Output Vital Signs (last 24 hours): Temp Pulse Resp BP Pulse Ox 97.8 F 62 20 103/66 97 04/11/17 15:40 04/11/17 15:40 04/11/17 15:40 04/11/17 15:40 04/11/17 15:40 Intake and Output: 04/11/17 04/11/17 06:59 18:59 Intake Total 250 700 Output Total 600 Balance -350 700 - Medications Medications: Current Medications Aspirin (Ecotrin) 81 mg PO DAILY [facility] Last Admin: 04/11/17 10:10 Dose: 81 mg Atenolol (Tenormin) 50 mg PO DAILY [facility] Last Admin: 04/11/17 10:10 Dose: 50 mg Glipizide (Glucotrol Xl) 2.5 mg PO DAILY [facility] Last Admin: 04/11/17 10:10 Dose: 2.5 mg Piperacillin Sod/Tazobactam Sod (Zosyn 3.375 Gm Iv Premix) 3.375 gm in 50 mls @ 100 mls/hr IVPB Q6H [facility] Last Admin: 04/11/17 17:14 Dose: 100 mls/hr Vancomycin HCl 1,000 mg/ (Sodium Chloride) 200 mls @ 133.333 mls/hr IVPB ONCE ONE Stop: 04/11/17 19:29 Multivitamins (Hexavitamin) 1 tab PO DAILY [facility] Last Admin: 04/11/17 10:10 Dose: 1 tab Rosuvastatin Calcium (Crestor) 5 mg PO HS [facility] Last Admin: 04/10/17 21:36 Dose: 5 mg - Labs Labs: 04/10/17 07:15 04/10/17 07:15 PT 12.9 SECONDS (9.7-12.2) H 04/09/17 08:45 INR 1.1 04/09/17 08:45 APTT 35 SECONDS (21-34) H 04/09/17 08:45 - Constitutional Appears: Well - Head Exam Head Exam: ATRAUMATIC, NORMAL INSPECTION, NORMOCEPHALIC - Eye Exam Eye Exam: EOMI, Normal appearance, PERRL Pupil Exam: NORMAL ACCOMODATION, PERRL - ENT Exam ENT Exam: Mucous Membranes Moist, Normal Exam - Neck Exam Neck Exam: Full ROM, Normal Inspection. absent: Lymphadenopathy - Respiratory Exam Respiratory Exam: Decreased Breath Sounds - Cardiovascular Exam Cardiovascular Exam: REGULAR RHYTHM, +S1, +S2 - GI/Abdominal Exam GI & Abdominal Exam: Soft, Diminished Bowel Sounds - Rectal Exam Rectal Exam: Deferred Assessment and Plan (1) Failure of outpatient treatment Status: Acute (2) Cellulitis Assessment & Plan: Cellulitis of the buttocks IV antibiotic IV Vanco discharge today and a clindamycin today po on discharge patient feels much better although ID is not clear but patient wants to go home d/w wth family pt adv to come to office on wednesday Status: Acute
== END 2017-04-11 20:15 | disposition home or self-care (01) | DRG 278 ==
LOC: C.ER 07:19 → C.9E 11:41 → C.3T 15:10
PROVIDERS: ADMIT Internal Medicine Nephrology; ATTEND Internal Medicine Nephrology
DX: L03.317 Cellulitis of buttock (principal); E11.9 Type 2 diabetes mellitus without complications; I10 Essential (primary) hypertension; E78.00 Pure hypercholesterolemia, unspecified; E78.5 Hyperlipidemia, unspecified